=== PATIENT | female | born 1985 | race Caucasian/White ===

== ENCOUNTER → 2020-05-09 | Outpatient (CLI) | payer OTHER | LOC: COL.PUL 09:59 | DX: R06.02 Shortness of breath (principal) | CPT/HCPCS: J7674 ==

== ENCOUNTER → 2020-08-20 | Outpatient (CLI) | payer OTHER | LOC: COL.RAD 13:35 | DX: R44.2 Other hallucinations (principal); R90.82 White matter disease, unspecified; R42 Dizziness and giddiness; R51.9 Headache, unspecified | CPT/HCPCS: A9585 ==

== ENCOUNTER → 2020-11-15 | Outpatient (CLI) | payer OTHER | LOC: COL.CARD 10-08 10:00 | DX: R44.2 Other hallucinations (principal); R42 Dizziness and giddiness; R51.9 Headache, unspecified ==